=== PATIENT | male | born 1970 | race Caucasian/White ===

== ENCOUNTER 2017-08-04 21:09 | Emergency (ER) | payer OTHER, BC ==
--- NOTE | 2017-08-04 21:34 | EDM.PDOC ---
ED HPI GENERAL MEDICAL PROBLEM - General Chief Complaint: Eye Problems Stated Complaint: EYE ISSUES Time Seen by Provider: 08/04/17 21:27 Source of Information: Reports: Patient History Limitations: Reports: No Limitations - History of Present Illness INITIAL COMMENTS - FREE TEXT/NARRATIVE: The patient presents with an irritated left eye. This started about 2 days ago. He has a history of dry eyes and he will get corneal abrasions and times and he feels like that is going on. He has some blurred vision. Onset: Gradual Duration: Day(s): (2) Quality: Reports: Ache Severity: Mild Improves with: Reports: None Worsens with: Reports: None Associated Symptoms: Reports: No Other Symptoms Left Eye Pain Score (Numeric/FACES): 6 - Related Data Allergies Allergy/AdvReac Type Severity Reaction Status Date / Time No Known Allergies Allergy Verified 08/04/17 21:23 Home Meds: Home Meds Ciprofloxacin [Ciprofloxacin 0.3% Ophth Soln] 1 ml EYELF Q4HR #1 bottle [Rx] Venlafaxine [Effexor XR] 75 mg PO DAILY 08/04/17 [History] traZODone HCl [Trazodone HCl] 50 mg PO BEDTIME 08/04/17 [History] Past Medical History Psychiatric History: Reports: Anxiety, Depression - Past Surgical History HEENT Surgical History: Reports: Oral Surgery GI Surgical History: Reports: Appendectomy ED ROS GENERAL - Review of Systems Review Of Systems: See Below Constitutional: Reports: No Symptoms HEENT: Reports: Eye Pain Respiratory: Reports: No Symptoms Cardiovascular: Reports: No Symptoms Endocrine: Reports: No Symptoms GI/Abdominal: Reports: No Symptoms : Reports: No Symptoms Musculoskeletal: Reports: No Symptoms ED EXAM GENERAL W FULL EYE - Physical Exam Exam: See Below Exam Limited By: No Limitations General Appearance: Alert, No Apparent Distress Eye Exam: Bilateral Eye: EOMI, PERRL Visual Acuity (R) 20/: 40 Visual Acuity (L) 20/: 20 With Correction: No Eyelids: Bilateral: Normal Appearance Conjunctiva & Sclera: Left: Injected Cornea Exam: Left: Corneal Abrasion Extraocular Movements: Bilateral: Intact Pupils: Normal Accommodation Pupillary Reaction: Bilateral: Brisk Anterior Chamber: Left: Normal Appearance Nose: Normal Inspection Throat/Mouth: Normal Inspection Respiratory/Chest: No Respiratory Distress Course - Vital Signs Last Recorded V/S: Last Vital Signs Temp 97.2 F 08/04/17 21:20 Pulse 89 08/04/17 21:20 Resp 16 08/04/17 21:20 BP 160/101 H 08/04/17 21:20 Pulse Ox 100 08/04/17 21:20 - Re-Assessments/Exams Free Text/Narrative Re-Assessment/Exam: 08/04/17 22:01 He has a corneal abrasion. Departure - Departure Time of Disposition: 10:05 Disposition: Home, Self-Care 01 Condition: Good Clinical Impression: Corneal abrasion Qualifiers: Encounter type: initial encounter Laterality: left Qualified Code(s): S05.02XA - Injury of conjunctiva and corneal abrasion without foreign body, left eye, initial encounter - Discharge Information Prescriptions: Ciprofloxacin [Ciprofloxacin 0.3% Ophth Soln] 1 ml EYELF Q4HR #1 bottle Referrals: Collette Macdonald PA-C [Primary Care Provider] - Forms: ED Department Discharge Additional Instructions: Use the cipro drops 1 drop every 4 hours while awake for 1 week. 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
== END 2017-08-04 22:17 | disposition home or self-care (01) ==
LOC: JD.ED 21:09
DX: S05.02XA Injury of conjunctiva and corneal abrasion without foreign body, left eye, initial encounter (principal); Z79.899 Other long term (current) drug therapy; X58.XXXA Exposure to other specified factors, initial encounter
CPT/HCPCS: 99283

== ENCOUNTER 2019-11-09 19:27 | Emergency (ER) | payer BC, OTHER ==
[2019-11-09] MEDS ORDERED: Lidocaine 1% 10 ML MDV ONE (20:50)
[2019-11-09] MEDS ORDERED: Lidocaine 1% 10 ML MDV INJECT ONE (20:53)
--- NOTE | 2019-11-09 21:34 | EDM.PDOC ---
ED HPI GENERAL MEDICAL PROBLEM - General Chief Complaint: Laceration Stated Complaint: LEFT HAND THUMB LACERATION BLADED ITEM Time Seen by Provider: 11/09/19 20:02 Source of Information: Reports: Patient History Limitations: Reports: No Limitations - History of Present Illness INITIAL COMMENTS - FREE TEXT/NARRATIVE: TRIAGE NOTE -- Pt presents to ER for complaints of a left thumb laceration that happened around 1900 when he was taking a tool off the drill, and hit the trigger on accident and caused the blade to go through his thumb. Pt has 1.5 cm laceration to the base of the thumb, scant bleeding in ER. Pt states that TDap is UTD. [ End ] As described above. No treatment or other intervention prior to arrival. No risk factors identified. Patient is healthy without medical problems takes no medications history of appendectomy in childhood. Non-smoker Left Finger-Thumb Pain Score (Numeric/FACES): 3 - Related Data Allergies Allergy/AdvReac Type Severity Reaction Status Date / Time No Known Allergies Allergy Verified 11/09/19 20:04 Home Meds: Home Meds Venlafaxine [Effexor XR] 75 mg PO DAILY 08/04/17 [History] Fish Oil/Tram-3 Fatty Acids [Fish Oil 1,000 MG] 1 each PO DAILY 11/09/19 [ History] Sulfamethoxazole/Trimethoprim [Bactrim Ds Tablet] 1 each PO BID #14 tablet 11/08 [Rx] cephALEXin [Keflex] 500 mg PO Q8H #21 cap 11/09/19 [Rx] Past Medical History Cardiovascular History: Reports: None Respiratory History: Reports: None Genitourinary History: Reports: None Musculoskeletal History: Reports: None Neurological History: Reports: None Psychiatric History: Reports: Anxiety, Depression Endocrine/Metabolic History: Reports: Obesity/BMI 30+ Hematologic History: Reports: None Immunologic History: Reports: None Oncologic (Cancer) History: Reports: None Dermatologic History: Reports: None - Infectious Disease History Infectious Disease History: Reports: None - Past Surgical History HEENT Surgical History: Reports: Oral Surgery GI Surgical History: Reports: Appendectomy Social & Family History - Tobacco Use Smoking Status *Q: Never Smoker - Caffeine Use Caffeine Use: Reports: Coffee - Recreational Drug Use Recreational Drug Use: No ED ROS GENERAL - Review of Systems Review Of Systems: Comprehensive ROS is negative, except as noted in HPI. ED EXAM, SKIN/RASH Exam: See Below Exam Limited By: No Limitations General Appearance: Alert, WD/WN, No Apparent Distress Eye Exam: Bilateral Eye: EOMI, PERRL Ears: Normal External Exam Nose: Normal Inspection Throat/Mouth: Normal Inspection Head: Atraumatic, Normocephalic Neck: Normal Inspection, Supple Respiratory/Chest: No Respiratory Distress, Lungs Clear, Normal Breath Sounds Cardiovascular: Regular Rate, Rhythm GI/Abdominal: Soft, Non-Tender Back Exam: Normal Inspection Extremities: Normal Inspection (Except as noted), Other (Left thumb palmar surface there is a transverse laceration about 2.1 cm sparing deep structures neuro tendon vascular intact. No gross contamination no foreign body.) Neurological: Alert, Oriented, Normal Cognition, No Motor/Sensory Deficits Psychiatric: Normal Affect, Normal Mood Skin: Warm, Dry Course - Vital Signs Last Recorded V/S: Last Vital Signs Temp 36.9 C 11/09/19 20:01 Pulse 72 11/09/19 20:01 Resp 16 11/09/19 20:01 BP 141/90 H 11/09/19 20:01 Pulse Ox 99 11/09/19 20:01 - Orders/Labs/Meds Meds: Medications Discontinued Medications Generic Name Dose Route Start Last Admin Trade Name Ericq PRN Reason Stop Dose Admin Lidocaine HCl Confirm 11/09/19 20:50 11/09/19 20:54 Xylocaine 1% Administered 11/09/19 20:51 Not Given Dose 10 ml .ROUTE .STK-MED ONE Lidocaine HCl 10 ml 11/09/19 20:53 11/09/19 20:54 Xylocaine 1% INJECT 11/09/19 20:54 10 ml ONETIME ONE Administration - Re-Assessments/Exams Free Text/Narrative Re-Assessment/Exam: 11/09/19 21:31 The wound was cleansed and disinfected and under sterile technique local anesthesia without 5 mL of 1% plain lidocaine. Closure with 5 simple interrupted 4-0 black nylon sutures. Patient tolerated well. No complications. See instructions below. Departure - Departure Time of Disposition: 21:32 Disposition: Home, Self-Care 01 Condition: Good Clinical Impression: Laceration of thumb Qualifiers: Encounter type: initial encounter Damage to nail status: without damage Foreign body presence: without foreign body Laterality: left Qualified Code(s): S61.012A - Laceration without foreign body of left thumb without damage to nail , initial encounter - Discharge Information *PRESCRIPTION DRUG MONITORING PROGRAM REVIEWED*: Not Applicable *COPY OF PRESCRIPTION DRUG MONITORING REPORT IN PATIENT ALIDA: Not Applicable Prescriptions: cephALEXin [Keflex] 500 mg PO Q8H #21 cap Sulfamethoxazole/Trimethoprim [Bactrim Ds Tablet] 1 each PO BID #14 tablet Referrals: Collette Macdonald PA-C [Primary Care Provider] - Additional Instructions: You have had repair of the laceration left thumb. On exam there was no evidence of damage to tendons or any other deep structures. You have been sutured with nylon sutures. Keep the area clean and covered. After 24 hours you can gently clean the area with water and a Q-tip. Keep a dry dressing in place. The sutures can be removed in 10 or 12 days. You will be on 2 antibiotics which should cover any bacteria that may try to infect this. In any event if there is any redness swelling pain fever return to ER right away. Sepsis Event Note (ED) - Evaluation Sepsis Screening Result: No Definite Risk - Focused Exam Vital Signs: Vital Signs Temp Pulse Resp BP Pulse Ox 11/09/19 20:01 36.9 C 72 16 141/90 H 99
== END 2019-11-09 21:40 | disposition home or self-care (01) ==
LOC: JD.ED 19:27
DX: S61.012A Laceration without foreign body of left thumb without damage to nail, initial encounter (principal); F41.9 Anxiety disorder, unspecified; F32.9 Major depressive disorder, single episode, unspecified; E66.9 Obesity, unspecified; Z79.899 Other long term (current) drug therapy; Z68.30 Body mass index [BMI] 30.0-30.9, adult; W22.8XXA Striking against or struck by other objects, initial encounter
CPT/HCPCS: 12001; 99282; J2001; 12031; 99283